=== PATIENT | female | born 1995 | race Caucasian/White ===

== ENCOUNTER 2018-02-21 02:30 | Emergency (ER) | payer OTHER ==
[2018-02-21] MEDS ORDERED: VITAMIN B-1 100 MG, FOLVITE 1 MG, INFUVITE 10 ML in NACL 0.9% 1000 ML 1,000 ML IV ONE (06:20)
[2018-02-21] MEDS ORDERED: NACL 0.9% 1000 ML 1,000 ML IV ONE (06:20)
[2018-02-21] MEDS ORDERED: ATIVAN IV ONE (07:11)
[2018-02-21] MEDS ORDERED: ZOFRAN IV ONE (07:11)
[2018-02-21 07:12] VITALS: BP 142/97
[2018-02-21 07:21] LABS: Eosinophils % (Auto) 0.3 % (0.0-4.3); Hematocrit 36.4 % (30.3-42.9); Hemoglobin 12.4 gm/dl (10.1-14.3); Lymphocytes % (Auto) 19.7 % (13.4-35.0); Mean Corpuscular HGB Conc 34 % (30-34); Mean Corpuscular Hemoglobin 30 pg (28-32); Mean Corpuscular Volume 87 fl (79-97); Mean Platelet Volume 8.8 fl (6-12); Monocytes % (Auto) 6.8 % (0.0-7.3); Platelet Count 249 K/mm3 (140-440); Red Blood Count 4.18 M/mm3 (3.65-5.03); Red Cell Distribution Width 14.1 % (13.2-15.2)
[2018-02-21 07:22] LABS: Basophils % (Auto) 0.4 % (0.0-1.8); Lymphocytes # (Auto) 2.3 K/mm3 (1.2-5.4); Monocytes # (Auto) 0.8 K/mm3 (0.0-0.8)
[2018-02-21 07:26] LABS: Alanine Aminotransferase 13 units/L (7-56); Albumin 4.6 g/dL (3.9-5); BUN/Creatinine Ratio 16; Blood Urea Nitrogen 8 mg/dL (7-17); Calcium 9.2 mg/dL (8.4-10.2); Hemolysis Index 6
[2018-02-21 07:34] LABS: Amphetamine Screen,Urine PRESUMPTIVE NEGATIVE; Benzodiazepines Screen,Urine PRESUMPTIVE NEGATIVE; Cannabinoid Screen,Urine PRESUMPTIVE NEGATIVE; Cocaine Screen,Urine PRESUMPTIVE NEGATIVE; Methadone Screen,Urine PRESUMPTIVE NEGATIVE; Opiate Screen,Urine PRESUMPTIVE NEGATIVE
[2018-02-21 07:38] LABS: Bacteria,Urine 1+ /HPF (Negative); Bilirubin,Urine NEG (Negative); Blood,Urine NEG (Negative); Color,Urine Straw (Yellow); Protein,Urine <15 mg/dL mg/dL (Negative); Urobilinogen,Urine < 2.0 mg/dL (<2.0)
--- NOTE | 2018-02-21 12:41 | Emergency Department Report ---
HPI - General Chief Complaint: Altered Mental Status Time Seen by Provider: 02/21/18 06:17 - HPI HPI: The patient is a 22-year-old female who presents for evaluation of altered mental status. The patient is a comment by her boyfriend whom contributes to history present illness. they states that last night, approximately 12 hours ago , after consuming Latoya, the patient developed palpitations, severe, constant, exacerbated with exertion, and associated with paranoia and change in her speech. The patient's boyfriend states that she is back to her normal baseline on my initial interview. The patient and boyfriend denied that the patient experienced trauma to the head or neck, head injury, headache, neck pain, neck stiffness, vision or hearing changes, smell or taste changes, paresthesias, facial drooping, seizure-like activity, chest pain, dyspnea, abdominal pain, syncope, hemoptysis, vomiting, urine or bowel incontinence or retention, or other focal neurological deficit. ED Past Medical Hx - Past Medical History Hx Psychiatric Treatment: Yes (Anxiety) - Surgical History Past Surgical History?: Yes Additional Surgical History: c sect X1 - Social History Smoking Status: Current Every Day Smoker Substance Use Type: Other - Medications Home Medications: Home Medications Medication Instructions Recorded Confirmed Last Taken Type Unobtainable 02/21/18 02/21/18 Unknown History ED Review of Systems ROS: Stated complaint: MEDICAL CLEARANCE Other details as noted in HPI Constitutional: denies: fever ENT: denies: throat or neck pain Respiratory: denies: cough, shortness of breath Cardiovascular: denies: chest pain reports palpitations Endocrine: denies unexplained weight loss or gain Gastrointestinal: denies: abdominal pain, nausea Genitourinary: denies: dysuria Musculoskeletal: denies: leg swelling Skin: denies: rash Neurological: denies: headache Hematological/Lymphatic: denies: easy bleeding or easy bruising Psych: denies sadness or hopelessness Physical Exam - Physical Exam Vital Signs: Vital Signs 02/21/18 02/21/18 02/21/18 02:40 07:11 08:16 Temperature 99.1 F 99.1 F Pulse Rate 119 H 107 H 98 H Respiratory 18 18 Rate Blood Pressure 149/84 Blood Pressure 142/97 [Left] O2 Sat by Pulse 100 99 Oximetry Physical Exam: General: well-nourished, well-developed, no acute distress Head: Normocephalic, atraumatic Eyes: normal sclera ENT: Mucous membranes are pale and dry Neck: trachea midline, neck supple, No neck stiffness, no cervical adenopathy Respiratory: Breath sounds equal bilaterally, no wheezing, rales, or rhonchi Cardio: S1 and S2 present, no murmurs, rubs, gallops, capillary refill is delayed Abdomen: Normoactive bowel sounds, soft abdomen, no rigidity, no guarding or rebound tenderness Musc: No pitting edema Skin: No rash Neuro: no facial drooping, normal speech Psych: Normal affect ED Course Vital Signs 02/21/18 02/21/18 02/21/18 02:40 07:11 08:16 Temperature 99.1 F 99.1 F Pulse Rate 119 H 107 H 98 H Respiratory 18 18 Rate Blood Pressure 149/84 Blood Pressure 142/97 [Left] O2 Sat by Pulse 100 99 Oximetry ED Medical Decision Making - Lab Data Result diagrams: 02/21/18 06:50 02/21/18 06:50 - Medical Decision Making The patient was seen and examined by myself. The patient is placed on a charge hand and continuous pulse ox. On initial evaluation, the patient was found to be in no distress. Evaluation orders were placed. The patient given 1 L normal saline fluid bolus for treatment of her dehydration and tachycardia. Lab results are grossly unremarkable, including negative test, normal EtOH, and normal thyroid function. The patient was reevaluated and found to have complete resolution of change in mental status. She is alert oriented 3, with no drowsiness or deficits on neuro examination whatsoever at this time. Additionally her significant other states that she is back to her normal baseline. The patient's heart rate is found to remain mildly tachycardic, and the patient is informed that additional fluid resuscitation will be ordered. The patient declined. The patient is competent and signs out AMA. Critical care attestation.: If time is entered above; I have spent that time in minutes in the direct care of this critically ill patient, excluding procedure time. ED Disposition Clinical Impression: Dehydration, Amphetamine intoxication delirium Disposition: - LEFT AGAINST MED ADVICE Is pt being admited?: No Does the pt Need Aspirin: No Condition: Undetermined Referrals: PRIMARY CARE, [Primary Care Provider] - 3-5 Days Time of Disposition: 07:36
== END 2018-02-21 08:17 | disposition left against medical advice (07) ==
LOC: ED 02:30
DX: E86.0 Dehydration (principal); F15.121 Other stimulant abuse with intoxication delirium; F41.9 Anxiety disorder, unspecified; F17.200 Nicotine dependence, unspecified, uncomplicated; Z91.018 Allergy to other foods; Z79.899 Other long term (current) drug therapy
CPT/HCPCS: 36415; 80053; 80307; 81001; 84439; 84443; 84703; 85025; 93005; 93010; 96365; 99284; G0480; J3411; J7030; 80320